=== PATIENT | male | born 1940 | race Caucasian/White ===

== ENCOUNTER 2017-12-17 10:06 | Observation (INO) | payer OTHER, BC ==
--- NOTE | 2017-12-17 10:21 | CPEKG ---
Heart Rate: 52 RR Interval: 1154 P-R Interval: 212 QRSD Interval: 80 QT Interval: 420 QTC Interval: 391 P Glidden: 65 QRS Glidden: 48 T Wave Glidden: 53 EKG Severity - BORDERLINE ECG - EKG Impression: SINUS BRADYCARDIA EKG Impression: PROBABLE LEFT ATRIAL ABNORMALITY EKG Impression: LOW VOLTAGE IN FRONTAL LEADS Electronically Signed By: Efren German 17-Dec-2017 14:40:46
[2017-12-17 10:35] LABS: PLATELET COUNT 197 10^3/uL (150-400)
--- NOTE | 2017-12-17 11:00 | EDPHY ---
H & P Time Seen by Provider: 12/17/17 10:59 HPI/ROS: Chief complaint. Shortness of breath HPI. 77-year-old male presents with shortness of breath for the past 5 days. Especially worse with exertion. Nonproductive cough. No chest pain, no fever. He has had some night sweats. He does complain also of left abdominal pain as a discomfort these had for many years and is not different. He has no unusual leg pain or swelling. The patient was seen at [facility] this morning and a diagnosis of pneumonia was made. He also had elevated ST segment in inferior leads. Again has not had any chest discomfort. Sent to the emergency department to rule out SD ROS Constitutional. no fever/chills, no weakness Eyes. no problems with vision ENT. no sore throat, no nasal drainage Cardiovascular. no chest pain Respiratory. Shortness of breath with exertion and dry cough Abdominal. no abdominal pain, no nausea/vomiting, no diarrhea . no problems urinating MS. no calf pain/swelling, no neck/back pain, no joint pain Skin. no rash Lymph. no swollen glands Neuro. no headache, no dizziness, no difficulty walking or with speech Past Medical/Surgical History: Past medical history seen for gout, ectopic heartbeat, tonsillectomy, prostate surgery Social History: , nonsmoker, no alcohol Smoking Status: Former smoker Physical Exam: General Appearance: Alert pleasant well-developed male mild distress vital signs are stable Eyes: Pupils equal and round no pallor or injection. ENT, Mouth: Mucous membranes are moist. Respiratory: There are no retractions, lungs are clear to auscultation. Cardiovascular: Regular rate and rhythm. Gastrointestinal: Abdomen is soft and nontender, no masses, bowel sounds normal. Neurological: Awake and alert, sensory and motor exams grossly normal. Skin: Warm and dry, no rashes. Musculoskeletal: Neck is supple nontender. Extremities symmetrical, full range of motion. Psychiatric: Patient is oriented X 3, there is no agitation. Constitutional: Initial Vital Signs Temperature (C) 36.8 C 12/17/17 10:11 Heart Rate 50 L 12/17/17 10:11 Respiratory Rate 16 12/17/17 10:11 Blood Pressure 155/87 H 12/17/17 10:11 O2 Sat (%) 96 12/17/17 10:11 O2 Delivery Mode Room Air Allergies/Adverse Reactions: No Known Allergies Allergy (Unverified 01/16/11 09:36) Home Medications: Medication Instructions Recorded Aspirin [Aspirin 81mg] 81 mg PO DAILY 01/16/11 Medical Decision Making - Diagnostics EKG Interpretation: EKG interpreted by me shows normal sinus rhythm normal interval and axis. QRS is normal there is no significant ST elevation or depression. There is no arrhythmia. The rate is 52 I did review the EKG from [facility]. It is a poor tracing but does appear show some ST elevation in the inferior leads. Imaging Results: Imaging Impressions Chest X-Ray 12/17/17 08:21 Impression: 1. Right lower lobe pneumonia is suspect. Follow-up x-ray will be required to ensure clearing. 2. New right upper lobe nodularity. Recommend chest CT (or at a minimum repeat chest x-ray as above) after the patient's acute infectious episode has been treated. Results were called to Maria Del Carmen Cummins's PA at 8:47 AM. Chest/Thorax CTA 12/17/17 11:19 Impression: 1. Extensive bilateral pulmonary artery thromboemboli, with the greatest involvement in the right lower lobe. 2. Pronounced pulmonary artery hypertension, with secondary evidence of right- sided heart strain. 3. Diffuse peribronchial thickening with nonspecific areas of mild peripheral groundglass attenuation in the upper and lower lobes, which may be related to some mild edema, early infiltrates, or early sequela of infarction(s). 4. Sequela of old granulomatous disease. 5. There is a benign-appearing 4 cm upper pole left renal cortical cyst. Findings were discussed with SUZANNE CAREY MD at 12:12 PM, on 12/17/2017. CT angiogram chest reviewed by me and discussed with Dr. Mratinez shows extensive pulmonary embolus bilaterally especially right lower lobe. Evidence for pulmonary infarction as well as pulmonary hypertension Procedures: IV normal saline, monitor Sepsis workup ED Course/Re-evaluation: Recheck at 12:20 p.m.. Patient, his , and I discussed imaging study results , treatment plan including recommendation for admission. They expressed understanding and agreement Patient is given Lovenox subcu. I consulted and discussed case with Dr. Bryce Kovacs, hospitalist who agrees to the admission Differential Diagnosis: I considered pneumonia, congestive heart failure, pulmonary embolus - Data Points Laboratory Results: Laboratory Results 12/17/17 10:25 12/17/17 10:25 12/17/17 12/17/17 12/17/17 11:30 10:25 10:25 WBC RBC Hgb Hct MCV MCH MCHC RDW Plt Count MPV Neut % (Auto) Lymph % (Auto) Christian % (Auto) Eos % (Auto) Baso % (Auto) Nucleat RBC Rel Count Absolute Neuts (auto) Absolute Lymphs (auto) Absolute Monos (auto) Absolute Eos (auto) Absolute Basos (auto) Absolute Nucleated RBC Immature Gran % Immature Gran # PT 14.4 SEC SEC (12.0-15.0) INR 1.10 (0.83-1.16) APTT 31.5 SEC SEC (23.0-38.0) D-Dimer 1.85 ug/mLFEU H ug/mLFEU (0.00-0.50) VBG Lactic Acid 0.7 mmol/L mmol/L (0.7-2.1) Sodium Potassium Chloride Carbon Dioxide Anion Gap BUN Creatinine Estimated GFR Glucose Calcium Total Bilirubin 0.7 mg/dL mg/dL (0.1-1.4) Troponin I NT-Pro-B Natriuret Pep 286 pg/mL pg/mL (0-450) 12/17/17 12/17/17 10:25 10:25 WBC 9.56 10^3/uL H 10^3/uL (3.80-9.50) RBC 5.10 10^6/uL 10^6/uL (4.40-6.38) Hgb 15.5 g/dL g/dL (13.7-17.5) Hct 46.2 % % (40.0-51.0) MCV 90.6 fL fL (81.5-99.8) MCH 30.4 pg pg (27.9-34.1) MCHC 33.5 g/dL g/dL (32.4-36.7) RDW 12.6 % % (11.5-15.2) Plt Count 197 10^3/uL 10^3/uL (150-400) MPV 10.8 fL fL (8.7-11.7) Neut % (Auto) 78.5 % H % (39.3-74.2) Lymph % (Auto) 11.3 % L % (15.0-45.0) Christian % (Auto) 7.7 % % (4.5-13.0) Eos % (Auto) 1.8 % % (0.6-7.6) Baso % (Auto) 0.3 % % (0.3-1.7) Nucleat RBC Rel Count 0.0 % % (0.0-0.2) Absolute Neuts (auto) 7.50 10^3/uL H 10^3/uL (1.70-6.50) Absolute Lymphs (auto) 1.08 10^3/uL 10^3/uL (1.00-3.00) Absolute Monos (auto) 0.74 10^3/uL 10^3/uL (0.30-0.80) Absolute Eos (auto) 0.17 10^3/uL 10^3/uL (0.03-0.40) Absolute Basos (auto) 0.03 10^3/uL 10^3/uL (0.02-0.10) Absolute Nucleated RBC 0.00 10^3/uL 10^3/uL (0-0.01) Immature Gran % 0.4 % % (0.0-1.1) Immature Gran # 0.04 10^3/uL 10^3/uL (0.00-0.10) PT INR APTT D-Dimer VBG Lactic Acid Sodium 141 mEq/L mEq/L (135-145) Potassium 4.7 mEq/L mEq/L (3.5-5.2) Chloride 101 mEq/L mEq/L (97-110) Carbon Dioxide 27 mEq/l mEq/l (22-31) Anion Gap 13 mEq/L mEq/L (8-16) BUN 21 mg/dL mg/dL (7-23) Creatinine 1.1 mg/dL mg/dL (0.7-1.3) Estimated GFR > 60 Glucose 80 mg/dL mg/dL (70-100) Calcium 9.1 mg/dL mg/dL (8.5-10.4) Total Bilirubin Troponin I < 0.012 ng/mL ng/mL (0.000-0.034) NT-Pro-B Natriuret Pep Medications Given: Discontinued Medications Sodium Chloride (Ns) 1,000 mls @ 0 mls/hr IV ONCE ONE; Wide Open PRN Reason: Protocol Stop: 12/17/17 11:19 Last Admin: 12/17/17 11:43 Dose: 1,000 mls Departure - Departure Disposition: [facility] Inpatient Acute Clinical Impression: Pulmonary embolus Qualifiers: Pulmonary embolism type: other Chronicity: acute Acute cor pulmonale presence: with acute cor pulmonale Qualified Code(s): I26.09 - Other pulmonary embolism with acute cor pulmonale Condition: Fair Referrals: NONE *PRIMARY CARE P,. [Primary Care Provider] - As per Instructions
[2017-12-17] MEDS ORDERED: NS 1,000 ML IV ONE (11:18)
[2017-12-17] MEDS ORDERED: IOPAMIDOL (ISOVUE 370) 100 ML BTL IV ONE (11:21)
[2017-12-17 11:40] LABS: INR 1.1 (0.83-1.16); PROTIME(PATIENT) 14.4 SEC (12.0-15.0)
[2017-12-17] MEDS ORDERED: ENOXAPARIN 80 MG/0.8 ML SYR SC ONE (12:16)
[2017-12-17] MEDS ORDERED: ACETAMINOPHEN 325 MG TAB PO PRN (12:40)
[2017-12-17] MEDS ORDERED: OXYCODONE/APAP 5/325 TAB PO PRN (12:40)
[2017-12-17] MEDS ORDERED: ONDANSETRON 4 MG/2 ML VIAL IVP PRN (12:40)
[2017-12-17] MEDS ORDERED: ONDANSETRON DISINTEGRATING 4 MG TAB PO PRN (12:40)
--- NOTE | 2017-12-17 14:45 | ECHO ---
[email or web address] [address] Main: [phone] Fax: Transthoracic Echocardiogram Name: ADARSH CANTRELL MR#: [id number] Study Date: 12/17/2017 Study Time: 01:04 PM Date of : 1940 Age: 77 year(s) Height: 185.4 cm (73 in.) Weight: 77.11 kg (170 lb.) BSA: 2.01 m2 Gender: Male Examination: Echo Indication: Extensive bilateral PE Image Quality: Contrast: Requested by: Lesa Chicas BP: 166 mmHg/93 mmHg Heart Rate: Rhythm: Normal sinus rhythm with ectopy Indication: Extensive bilateral PE Procedure Staff [employer] Senior Sergeant: Silvestre Crook RDCS Reading Physician: Joe Harris MD Requesting Provider: Conclusions: Normal global systolic LV function. EF is 68 %. Mild mitral valve regurgitation is present. Mild aortic valve regurgitation is present. Measurements: Chambers Valvular Assessment AV/MV Valvular Assessment TV/PV Normal Normal Normal Name Value Range Name Value Range Name Value Range Ao Anamika (MM): 4.0 cm (2.2 cm-3.7 AV Vmax: 1.36 m/s (1 m/s-1.7 TR Vmax: 2.97 mm/s ( - ) cm) m/s) TR PGmax: 35 mmHg ( - ) IVSd (2D): 1.0 cm (0.6 cm-1.1 AV maxP mmHg ( - ) syst. PAP: 40 mmHg ( - ) cm) LVOT Vmax: 0.74 m/s (0.7 m/s-1.1 PV Vmax: 0.81 m/s (0.6 m/s-0.9 LVDd (2D): 4.7 cm (4.2 cm-5.9 m/s) m/s) cm) MV E Vmax: 0.48 m/s ( - ) PV PGmax: 3 mmHg ( - ) LVDs (2D): 2.9 cm (2.1 cm-4 MV A Vmax: 0.60 m/s ( - ) cm) MV E/A: 0.80 ( - ) LVPWd (2D): 0.9 cm (0.6 cm-1 cm) LVEF (2D): 68 (>=54 %) RVDd(2D): 3.2 cm (1.9 cm-3.8 cmmm) Continued Measurements: Chambers Valvular Assessment AV/MV Valvular Assessment TV/PV Name Value Name Value Name Value LADs Lon.2 cm MV E/E' Septal: 9.80 CVP (est.): 5 mmHg LA Area: 20.7 cm2 MV E/E' Lateral: 7.60 TAPSE: 1.7 cm Patient: ADARSH CANTRELL Study Date: 12/17/2017 Page 1 of 2 01:04 PM Findings: Left Ventricle: Normal size left ventricle. No LV hypertrophy. Normal global systolic LV function. EF is 68 %. No regional wall motion abnormality. Diastolic dysfunction is present. . Multiple episodes of ectopy noted during the echo exam.. Right Ventricle: Normal size right ventricle. Mildly reduced RV function. RV moderator band noted.. Left Atrium: The left atrium is normal in size. LA ESV Index is 33.8 ml/m2. Right Atrium: The right atrium is normal in size. Mitral Valve: The mitral valve is normal in appearance and function. Mild mitral valve regurgitation is present. Aortic Valve: The aortic valve is tri-leaflet. Mild aortic valve regurgitation is present. Tricuspid Valve: The tricuspid valve appears normal. Mild tricuspid regurgitation is present. The pulmonary artery pressure is mildly increased. Pulmonic Valve: The pulmonic valve is normal in appearance and function. Trivial pulmonic valve regurgitation. Aorta: The aorta is normal. Pericardium: No pericardial effusion. (No Signature Object) Patient: ADARSH CANTRELL Study Date: 12/17/2017 Page 2 of 2 01:04 PM [id number]
--- NOTE | 2017-12-17 15:54 | GHP ---
[f rep st] HISTORY AND PHYSICAL DATE OF ADMISSION: 12/17/2017 CHIEF COMPLAINT: Shortness of breath. HISTORY OF PRESENT ILLNESS: A very healthy 77-year-old male who presents with several weeks of notab le dyspnea on exertion with limiting to his exercise capacity that he was not used to. The patient p resented to his outpatient clinic where he reported this symptom and they referred the patient to the emergency department for evaluation. In the ED, patient is denying any pleuritic chest pain. Denied palpitations, vision changes, dizzine ss, just this dyspnea on exertion. Denies lower extremity edema. Denies any recent travel. Denies any recent trauma. He is quite active, rides his cycle many times a week for many, many miles. Eamon es any changes to his bowel habits, dysuria, hematuria, lower extremity edema or rashes. PAST MEDICAL HISTORY: Prostate cancer. Status post prostatectomy in 2009. He has had stable PSA mo nitoring since then. SOCIAL HISTORY: Negative for tobacco. He used to smoke a pipe, but no longer does. Occasional alco hol. No illicit drugs or marijuana. FAMILY HISTORY: Negative for any clotting episodes. REVIEW OF SYSTEMS: A 10-point review of systems is negative with the exception of that reported in t he HPI. PHYSICAL EXAMINATION: VITAL SIGNS: Blood pressure is 126/95, heart rate 56, respiratory rate 18, 96 % on room air, 36.4. GENERAL: This is a very healthy-appearing elderly male in no acute distress. HEENT: Exam is notable for moist mucous membranes. Eye exam is negative for any icterus. CARDIAC: The patient is bradycardic, regular, with no murmurs. GASTROINTESTINAL: Positive bowel sounds. Ab domen is soft and nontender. MUSCULOSKELETAL: Negative for any lower extremity edema. SKIN: Negat beryl for any rashes. NEUROLOGIC: He is alert and oriented x3. PSYCHIATRIC: He is pleasant and coop erative on interview and examination. DATA: White count 9.5, hematocrit 46.2, platelets of 197. D-dimer 1.8. Creatinine 1.1. Troponin l ess than 0.012. CTA of the chest shows bilateral significant pulmonary emboli. ASSESSMENT AND PLAN: This is a 77-year-old male presenting with dyspnea on exertion. 1. Acute bilateral pulmonary emboli. I suspect the patient's symptoms leading into his presentation are likely related to this. The patient denies any recent travel. Denies any recent trauma. Does have a history of prostate cancer, has been followed closely with stable PSA monitoring. At this hugo e no clear explanation for acute pulmonary embolism. Will initiate Lovenox therapy as well as Coumad in. His has a history of protein C deficiency and is also on Coumadin anticoagulation, so he is most comfortable with this form. We will start 5 mg a day and he can do anticoag followup where his does. We will check a transthoracic echocardiogram based on the described burden of clot on th e CTA to verify his right heart is functioning normally. If his vital sign monitoring is stable and the echo is without concern, he should be a candidate for disposition tomorrow. I did recommend that the patient follow in the outpatient setting with [facility], so they can evaluate him for any hypercoag workup that is necessary. Recommend he does this in 2-3 months after the acut e clotting episode. I have included Dr. Helms's contact information who is our on-call Heme-Onc curr ently. 2. Prostate cancer as above. He has been monitored closely and appears stable. 3. Prophylaxis he is on full-dose Lovenox. 4. Diet regular. DISPOSITION: I expect less than 2 midnights if his transthoracic echocardiogram is normal the patien t should be a candidate for disposition tomorrow. I have discussed the case with the emergency room physician. Patient will be triaged to the medical-surgical floor for monitoring and care. /[id number]/MODL
[2017-12-17] MEDS ORDERED: WARFARIN SODIUM 5 MG TAB PO SCH (16:00)
[2017-12-17] MEDS: ENOXAPARIN 80 MG/0.8 ML SYR SC SCH (20:50)
[2017-12-18 08:35] VITALS: BP 118/86
[2017-12-18] MEDS: ENOXAPARIN 80 MG/0.8 ML SYR SC SCH (09:30)
--- NOTE | 2017-12-18 09:39 | HOSPPROG ---
Hospitalist Progress Note Assessment/Plan: 77 yo m w new PE unprovoked stable PSA home today w LMWH bridge to warfarin see dc summary Subjective: ready for dc Objective: Vital Signs Temp Pulse Resp BP Pulse Ox 36.5 C 54 L 16 118/86 H 93 12/18/17 08:34 12/18/17 08:34 12/18/17 08:34 12/18/17 08:34 12/18/17 08:34 PT 14.4 SEC (12.0-15.0) 12/17/17 10:25 INR 1.10 (0.83-1.16) 12/17/17 10:25 - Physical Exam Constitutional: no apparent distress, appears nourished Eyes: PERRL, anicteric sclera Ears, Nose, Mouth, Throat: moist mucous membranes, hearing normal Cardiovascular: regular rate and rhythym, no murmur, rub, or gallop Respiratory: no respiratory distress, no rales or rhonchi Gastrointestinal: normoactive bowel sounds, soft, non-tender abdomen Genitourinary: no bladder fullness, No duke in urethra Skin: warm, normal color Musculoskeletal: full muscle strength Neurologic: AAOx3 ICD10 Worksheet Patient Problems: Problems Problem Status Onset Pulmonary embolus Acute
--- NOTE | 2017-12-18 10:02 | GDS ---
[f rep st] DISCHARGE SUMMARY DISCHARGE DIAGNOSES: 1. Acute pulmonary embolism. 2. Mild right heart strain. 3. History of prostate cancer. HOSPITAL COURSE: Please see admission history and physical by Dr. Enriqueta Chicas. The patient presented with dyspnea on exertion that had been going on over weeks. He had a CT PE showing moderate clot bu rden with bilateral pulmonary emboli without evidence of pulmonary infarct. The EKG was without evid ence of right heart strain. Notable was evidence of right heart strain on his CTA. Echocardiogram s howed a mild reduction in RV function and pulmonary artery pressure of 40, consistent with moderate a cute pulmonary hypertension. On the first hospital day, the patient had a pulse in the 40s and 50s w ith no oxygen requirement, no pleuritic pain, and he is discharged home on low-molecular weight hepar in with a bridge to a therapeutic INR. His takes Coumadin for protein S deficiency. The patien t is advised to seek care for worsening chest pain or dyspnea symptoms. /[id number]/MODL
== END 2017-12-18 11:04 | disposition home or self-care (01) ==
LOC: EDSTATUS 10:06 → INTOOBSV 12:28 → F3E 13:49
PROVIDERS: ADMIT Hospitalist; ATTEND Internal Medicine
DX: I26.09 Other pulmonary embolism with acute cor pulmonale (principal); I27.20 Pulmonary hypertension, unspecified; R91.8 Other nonspecific abnormal finding of lung field; E86.9 Volume depletion, unspecified; M10.9 Gout, unspecified; N28.1 Cyst of kidney, acquired; Z85.46 Personal history of malignant neoplasm of prostate
CPT/HCPCS: 71046; 71275; 93005; 93306; 96360; 99285; G0378; J1650; Q9967

== ENCOUNTER → 2018-01-10 | Outpatient (CLI) | payer OTHER, BC | LOC: BMCIMAGING 09:35 | PROVIDERS: ATTEND Internal Medicine | DX: R05 Cough (principal); J84.9 Interstitial pulmonary disease, unspecified; R91.8 Other nonspecific abnormal finding of lung field ==

== ENCOUNTER → 2018-03-04 | Outpatient (CLI) | payer OTHER, BC | LOC: FIMAGING 07:49 | PROVIDERS: ATTEND Internal Medicine | DX: R26.9 Unspecified abnormalities of gait and mobility (principal); R53.1 Weakness; R42 Dizziness and giddiness; E04.1 Nontoxic single thyroid nodule; Z86.73 Personal history of transient ischemic attack (TIA), and cerebral infarction without residual deficits ==

== ENCOUNTER → 2018-03-31 | Outpatient (CLI) | payer OTHER, BC | LOC: FIMAGING 16:59 | PROVIDERS: ATTEND Internal Medicine | DX: E04.1 Nontoxic single thyroid nodule (principal) ==

== ENCOUNTER → 2018-05-31 | Outpatient (CLI) | payer OTHER, BC | LOC: BMCIMAGING 09:27 | PROVIDERS: ATTEND Emergency Medicine | DX: S49.91XA Unspecified injury of right shoulder and upper arm, initial encounter (principal) ==

== ENCOUNTER → 2018-11-14 | Outpatient (CLI) | payer OTHER, BC | LOC: BHFA 09:30 | PROVIDERS: ATTEND Internal Medicine Cardiovascular Disease | DX: R06.02 Shortness of breath (principal) ==

== ENCOUNTER → 2018-11-24 | Outpatient (CLI) | payer OTHER, BC | LOC: FIMAGING 13:56 | PROVIDERS: ATTEND Internal Medicine Cardiovascular Disease | DX: R06.00 Dyspnea, unspecified (principal) ==

== ENCOUNTER → 2018-12-08 | Outpatient (CLI) | payer OTHER, BC | LOC: BHFA 09:00 | PROVIDERS: ATTEND Internal Medicine Interventional Cardiology | DX: R06.02 Shortness of breath (principal); I47.2 Ventricular tachycardia; R94.39 Abnormal result of other cardiovascular function study | CPT/HCPCS: 78452; 93017; A9500; J2785 ==

== ENCOUNTER → 2019-01-14 | Outpatient (CLI) | payer OTHER, BC | LOC: FIMAGING 08:19 | PROVIDERS: ATTEND Internal Medicine | DX: R91.8 Other nonspecific abnormal finding of lung field (principal); R59.1 Generalized enlarged lymph nodes ==

== ENCOUNTER 2019-03-02 13:30 | Emergency (ER) | payer OTHER, BC | END 2019-03-02 15:23 | disposition home or self-care (01) ==